=== PATIENT | female | born 1955 ===

== ENCOUNTER 2022-06-03 14:00 | Inpatient (IN) ==
[2022-06-03] MEDS ORDERED: Acetaminophen IV 1 GM/100ML 1,000 MG/100 ML BAG IV ONE (14:12)
[2022-06-03] MEDS ORDERED: Lactated Ringers 1000 ml BAG 1,000 ML IV ONE (14:12)
[2022-06-03 15:04] LABS: Venous Bicarbonate HCO3 24.4 mmol/L (24-28)
[2022-06-03 15:08] LABS: ABS Basophils 0.1 10^3/ul (0-0.2); ABS Lymphocytes 1.3 10^3/ul (1.0-4.8); ABS Monocytes 0.7 10^3/ul (0-0.8); ABS Neutrophils 10.5 10^3/ul (1.5-7.7); Eosinophil % 0.2 %; Hematocrit 47 % (35-47); Hemoglobin 15.7 g/dL (12.0-16.0); Lymphocyte % 10.2 %; Mean Corpuscular HGB Conc 34 g/dL (31-36); Mean Corpuscular Hemoglobin 31 pg (27-31); Mean Corpuscular Volume 93 fL (80-97); Mean Platelet Volume 7.7 fL (7.4-10.4); Platelet Count 307 10^3/uL (150-450); Red Blood Count 5.01 10^6 /uL (3.70-4.87); Red Cell Distribution Width 13 % (10-15); White Blood Count 12.6 10^3/uL (3.5-10.8)
[2022-06-03 15:47] LABS: Calcium 9.8 mg/dL (8.6-10.3); Potassium 3.9 mmol/L (3.5-5.0); eGFR CKD-EPI 95.7 (>60)
[2022-06-03] MEDS ORDERED: Dextrose 50% Syringe 50 ml 25 GM/50 ML SYRINGE IV PUSH PRN (16:23)
[2022-06-03 17:05] LABS: Magnesium 1.8 mg/dL (1.9-2.7)
[2022-06-03] MEDS ORDERED: Magnesium Sulfate IV 1GM/100ML 1 GM/100 ML BAG IV ONE (17:06)
[2022-06-03] MEDS ORDERED: Heparin 5000 UNITS/ML 1 mL VIAL SUBCUT ONE (17:30)
[2022-06-04] MEDS: Morphine 2 MG/ML SYRINGE IV PRN ×3 (05:34→12:19)
[2022-06-04 06:09] LABS: ABS Eosinophils 0.1 10^3/ul (0-0.6); ABS Lymphocytes 3.3 10^3/ul (1.0-4.8); ABS Neutrophils 5.8 10^3/ul (1.5-7.7); Eosinophil % 0.9 %; Hematocrit 39 % (35-47); Hemoglobin 13.5 g/dL (12.0-16.0); Mean Corpuscular HGB Conc 35 g/dL (31-36); Mean Corpuscular Hemoglobin 32 pg (27-31); Mean Corpuscular Volume 91 fL (80-97); Mean Platelet Volume 7.4 fL (7.4-10.4); Nucleated Red Blood Cells % 0.1; Platelet Count 279 10^3/uL (150-450); Red Blood Count 4.29 10^6 /uL (3.70-4.87); Red Cell Distribution Width 13 % (10-15); White Blood Count 10.2 10^3/uL (3.5-10.8)
[2022-06-04 06:23] LABS: Calcium 8.9 mg/dL (8.6-10.3); eGFR CKD-EPI 95.4 (>60)
[2022-06-04 08:44] LABS: Magnesium 1.9 mg/dL (1.9-2.7)
[2022-06-04] MEDS ORDERED: Influenza vaccine *QUAD* *2022-23* 0.5 ML SYRINGE IM ONE (09:00)
[2022-06-04] MEDS: Lactated Ringers 1000 ml BAG 1,000 ML IV SCH ×2 (13:21→23:02)
[2022-06-04] MEDS ORDERED: Magnesium Hydroxide LIQ 30 ML UDC PO PRN (15:42)
[2022-06-04] MEDS ORDERED: Polyethylene Glycol 3350 17 GM PACKET PO PRN (15:42)
[2022-06-04] MEDS ORDERED: Senna TAB 8.6 mg TAB PO PRN (15:42)
[2022-06-04] MEDS ORDERED: ceFAZolin 2 GM PREMIX 2 GM/50 ML BAG ONE (16:35)
[2022-06-04] MEDS ORDERED: Midazolam 2 mg/2 ml VIAL 1 mg/ml 2 ml VIAL (2 mg) ONE (16:56)
[2022-06-04] MEDS ORDERED: fentaNYL 250 mcg/5 ml 50 MCG/ML 5 ml VIAL (250 MCG) ONE (16:56)
[2022-06-04] MEDS ORDERED: Propofol 10 MG/ML 20 ML BTL ONE ×2 (16:56→18:56)
[2022-06-04] MEDS ORDERED: Lidocaine 2% PF 5 ML VIAL ONE (16:56)
[2022-06-04] MEDS ORDERED: Naloxone 0.4 mg VIAL 0.4 mg/ml 1 ml VIAL IV PRN (17:01)
[2022-06-04] MEDS ORDERED: Ondansetron 4 mg VIAL 2 MG/ML 2 ml VIAL IV PRN (17:01)
[2022-06-04] MEDS ORDERED: Acetaminophen IV 1 GM/100ML 1,000 MG/100 ML BAG IV PRN (17:01)
[2022-06-04] MEDS ORDERED: HYDROmorphone 1 MG/1 ML SYRINGE IV PRN (17:01)
[2022-06-04] MEDS ORDERED: Clindamycin 900 MG/D5W BAG 900 MG/50 ML BAG IVPB ONE (17:59)
[2022-06-04] MEDS ORDERED: Dexamethasone IV 4 MG/ML VIAL 1 ml VIAL ONE (18:29)
[2022-06-04] MEDS ORDERED: Ondansetron 4 mg VIAL 2 MG/ML 2 ml VIAL ONE (18:29)
[2022-06-04] MEDS ORDERED: fentaNYL 100 mcg/2 ml 50 MCG/ML VIAL ONE ×2 (19:35→20:51)
[2022-06-04] MEDS ORDERED: Acetaminophen IV 1 GM/100ML 1,000 MG/100 ML BAG IV ONE (20:18)
[2022-06-04] MEDS ORDERED: hydrALAZINE 20 mg/ml 1 ML Vial IV IV SLOW PU PRN (20:26)
[2022-06-04] MEDS ORDERED: hydrALAZINE 20 mg/ml 1 ML Vial IV ONE (20:36)
[2022-06-04] MEDS: fentaNYL 100 mcg/2 ml 50 MCG/ML VIAL IV PRN ×2 (20:53→21:55)
[2022-06-05] MEDS: Clindamycin 600 MG/D5W BAG IV SCH ×3 (03:03→18:26)
[2022-06-05 06:01] LABS: CO2 Carbon Dioxide 21 mmol/L (22-32); Calcium 8.7 mg/dL (8.6-10.3); Chloride 97 mmol/L (101-111); Sodium 130 mmol/L (135-145)
[2022-06-05 06:02] LABS: ABS Lymphocytes 1.3 10^3/ul (1.0-4.8); ABS Monocytes 1.3 10^3/ul (0-0.8); ABS Neutrophils 9.8 10^3/ul (1.5-7.7); Eosinophil % 0.1 %; Hematocrit 39 % (35-47); Hemoglobin 13.3 g/dL (12.0-16.0); Lymphocyte % 10.4 %; Mean Corpuscular HGB Conc 34 g/dL (31-36); Mean Corpuscular Hemoglobin 32 pg (27-31); Mean Corpuscular Volume 93 fL (80-97); Mean Platelet Volume 7.2 fL (7.4-10.4); Platelet Count 247 10^3/uL (150-450); Red Blood Count 4.21 10^6 /uL (3.70-4.87); Red Cell Distribution Width 13 % (10-15); White Blood Count 12.5 10^3/uL (3.5-10.8)
[2022-06-05 06:04] LABS: Anion Gap 12 mmol/L (2-11)
[2022-06-05 06:06] LABS: Blood Urea Nitrogen 15 mg/dL (6-24); Glucose 254 mg/dL (70-100); eGFR CKD-EPI 95.1 (>60)
[2022-06-05 07:49] LABS: Potassium, Whole Blood 4.4 mmol/L (3.4-4.5)
[2022-06-05] MEDS ORDERED: Influenza vaccine *QUAD* *2022-23* 0.5 ML SYRINGE IM ONE (09:00)
[2022-06-05] MEDS: Enoxaparin 40 MG/0.4 ML SYR SUBCUT SCH (09:46)
[2022-06-06 05:57] LABS: ABS Eosinophils 0.1 10^3/ul (0-0.6); ABS Lymphocytes 1.5 10^3/ul (1.0-4.8); ABS Monocytes 0.9 10^3/ul (0-0.8); ABS Neutrophils 6.3 10^3/ul (1.5-7.7); Eosinophil % 0.9 %; Hematocrit 32 % (35-47); Hemoglobin 11.3 g/dL (12.0-16.0); Mean Corpuscular HGB Conc 35 g/dL (31-36); Mean Corpuscular Hemoglobin 32 pg (27-31); Mean Corpuscular Volume 91 fL (80-97); Mean Platelet Volume 7.4 fL (7.4-10.4); Nucleated Red Blood Cells % 0.1; Platelet Count 241 10^3/uL (150-450); Red Blood Count 3.56 10^6 /uL (3.70-4.87); Red Cell Distribution Width 13 % (10-15); White Blood Count 8.8 10^3/uL (3.5-10.8)
[2022-06-06 06:40] LABS: Calcium 8.4 mg/dL (8.6-10.3); Magnesium 1.6 mg/dL (1.9-2.7)
[2022-06-06] MEDS ORDERED: Magnesium Sulfate 2 gm BAG 2 GM/50 ML BAG IVPB ONE (08:18)
[2022-06-06] MEDS: Enoxaparin 40 MG/0.4 ML SYR SUBCUT SCH (08:57)
[2022-06-06] MEDS ORDERED: Ondansetron 4 mg VIAL 2 MG/ML 2 ml VIAL IV PRN (10:03)
[2022-06-07 05:34] LABS: ABS Eosinophils 0.2 10^3/ul (0-0.6); ABS Lymphocytes 1.7 10^3/ul (1.0-4.8); ABS Monocytes 0.9 10^3/ul (0-0.8); ABS Neutrophils 4.4 10^3/ul (1.5-7.7); Eosinophil % 2.1 %; Hematocrit 32 % (35-47); Lymphocyte % 23.3 %; Mean Corpuscular HGB Conc 35 g/dL (31-36); Mean Corpuscular Hemoglobin 32 pg (27-31); Mean Corpuscular Volume 92 fL (80-97); Mean Platelet Volume 7.2 fL (7.4-10.4); Nucleated Red Blood Cells % 0.1; Platelet Count 251 10^3/uL (150-450); Red Blood Count 3.47 10^6 /uL (3.70-4.87); Red Cell Distribution Width 13 % (10-15); White Blood Count 7.3 10^3/uL (3.5-10.8)
[2022-06-07 06:31] LABS: Calcium 8.5 mg/dL (8.6-10.3); Magnesium 1.9 mg/dL (1.9-2.7); Potassium 4.1 mmol/L (3.5-5.0); eGFR CKD-EPI 100.8 (>60)
[2022-06-07] MEDS: Enoxaparin 40 MG/0.4 ML SYR SUBCUT SCH (10:31)
[2022-06-07] MEDS: Insulin GLARGINE 100 un/ml 10 ml VIAL SUBCUT SCH (10:31)
[2022-06-08 07:41] VITALS: BP 156/71
[2022-06-08] MEDS ORDERED: Nystatin TOP POWDER 15 GM BTL TOPICAL SCH (09:00)
[2022-06-08] MEDS: Insulin GLARGINE 100 un/ml 10 ml VIAL SUBCUT SCH (09:23)
[2022-06-08] MEDS: Enoxaparin 40 MG/0.4 ML SYR SUBCUT SCH (09:25)
== END 2022-06-08 11:00 | DRG 482 ==
LOC: ED 14:00 → SUATTDRO 15:48 → EDHOLD 15:48 → SSU 06-04 00:52
PROVIDERS: ADMIT Internal Medicine; ATTEND Internal Medicine

== ENCOUNTER 2023-09-26 09:00 | Inpatient (IN) ==
[2023-09-26 12:50] LABS: Rapid COVID-19 Molecular Undetected (Undetected)
[2023-09-26] MEDS ORDERED: Famotidine IV 10 MG/ML 2 ml VIAL (20 mg) ONE (13:12)
[2023-09-26] MEDS: Famotidine IV 10 MG/ML 2 ml VIAL (20 mg) IV ONE (13:47)
[2023-09-26] MEDS: Buffered Lidocaine 1% SYRIN 1 ml INTRADERM ONE (13:47)
[2023-09-26] MEDS: Lactated Ringers 1000 ml BAG 1,000 ML IV SCH ×2 (13:48→23:11)
[2023-09-26] MEDS ORDERED: Midazolam 2 mg/2 ml VIAL 1 mg/ml 2 ml VIAL (2 mg) ONE (14:13)
[2023-09-26] MEDS ORDERED: Rocuronium 50 mg VIAL 10 mg/ml 5 ml VIAL (50 mg) ONE (14:13)
[2023-09-26] MEDS ORDERED: Lidocaine 2% PF 5 ML VIAL ONE (14:13)
[2023-09-26] MEDS ORDERED: Propofol 10 MG/ML 20 ML BTL ONE (14:13)
[2023-09-26] MEDS ORDERED: fentaNYL 250 mcg/5 ml 50 MCG/ML 5 ml VIAL (250 MCG) ONE (14:13)
[2023-09-26] MEDS ORDERED: Naloxone 0.4 mg VIAL 0.4 mg/ml 1 ml VIAL IV PRN (15:11)
[2023-09-26] MEDS ORDERED: fentaNYL 100 mcg/2 ml 50 MCG/ML VIAL IV PRN (15:11)
[2023-09-26] MEDS ORDERED: HYDROmorphone 1 MG/1 ML SYRINGE IV PRN (15:11)
[2023-09-26] MEDS ORDERED: Dexamethasone IV 4 MG/ML VIAL 1 ml VIAL ONE (15:15)
[2023-09-26] MEDS ORDERED: Ondansetron 4 mg VIAL 2 MG/ML 2 ml VIAL ONE (15:15)
[2023-09-26] MEDS ORDERED: HYDROmorphone 0.5 MG/0.5 ML SYRINGE ONE ×2 (15:16→17:57)
[2023-09-26] MEDS ORDERED: ROPIVACAINE 5 MG/ML 30 ML BTL (0.5%) ONE (15:27)
[2023-09-26] MEDS ORDERED: Magnesium Hydroxide LIQ 30 ML UDC PO PRN (16:04)
[2023-09-26] MEDS ORDERED: Lactulose 30 ml UDC PO PRN (16:04)
[2023-09-26] MEDS ORDERED: Ondansetron 4 mg VIAL 2 MG/ML 2 ml VIAL IV PRN (16:04)
[2023-09-26] MEDS ORDERED: Ondansetron ODT 4 mg TAB 4 MG TAB PO PRN (16:04)
[2023-09-26] MEDS ORDERED: Morphine 2 MG/ML SYRINGE IV PRN (16:04)
[2023-09-26] MEDS ORDERED: Labetalol IV 5 MG/ML 20 ml VIAL ONE (19:46)
[2023-09-26] MEDS: Labetalol IV 5 MG/ML 20 ml VIAL IV PUSH ONE (19:48)
[2023-09-26] MEDS: Magnesium Hydroxide LIQ 30 ML UDC PO SCH (21:34)
[2023-09-26] MEDS: ceFAZolin 1 GM ADVAN 1 GM in NS 0.9% 50 ML 50 ML IVPB SCH (23:11)
[2023-09-27] MEDS: ceFAZolin 2 GM in NS 100 ml - ONCE (Pharmacy Admix) IVPB ONE
[2023-09-27] MEDS ORDERED: Dextrose 50% Syringe 50 ml 25 GM/50 ML SYRINGE IV PUSH PRN (02:57)
[2023-09-27] MEDS: Nystatin TOP POWDER 15 GM BTL TOPICAL SCH (06:30)
[2023-09-27 07:00] LABS: Hematocrit 28.5 % (35-45); Hemoglobin 9.9 g/dL (11.5-14.3); Platelet Count 300 10^3/uL (150-450)
[2023-09-27 07:32] LABS: Calcium 8.9 mg/dL (8.6-10.3); Creatinine, Serum 0.98 mg/dL (0.51-0.95); Potassium 5.2 mmol/L (3.5-5.0); eGFR CKD-EPI 62.9 (>60)
[2023-09-27] MEDS: Vitamin THERAPEUTIC TAB PO SCH (08:58)
[2023-09-27] MEDS ORDERED: Insulin GLARGINE 100 un/ml 10 ml VIAL SUBCUT SCH (21:00)
[2023-09-28 07:23] LABS: Hematocrit 27.5 % (35-45); Hemoglobin 9.7 g/dL (11.5-14.3); Platelet Count 287 10^3/uL (150-450)
[2023-09-29 06:25] LABS: Hematocrit 25.6 % (35-45); Mean Corpuscular Hemoglobin 32.5 pg (27-33); Mean Corpuscular Hgb Conc 35.2 g/dL (31-36); Mean Corpuscular Volume 92.1 fL (80-97); Mean Platelet Volume 6.9 fL (7.5-11.2); Platelet Count 307 10^3/uL (150-450); Red Blood Count 2.78 10^6/uL (3.63-4.92); Red Cell Distribution Width 12.8 % (12-17); White Blood Count 10.6 10^3/uL (3.8-11.8)
[2023-09-29 06:39] LABS: Calcium 8.8 mg/dL (8.6-10.3); Creatinine, Serum 0.83 mg/dL (0.51-0.95); Potassium 5.4 mmol/L (3.5-5.0); eGFR CKD-EPI 76.7 (>60)
[2023-09-29] MEDS: Insulin GLARGINE 100 un/ml 10 ml VIAL SUBCUT SCH (22:30)
[2023-09-30 06:06] LABS: Hematocrit 25.6 % (35-45); Mean Platelet Volume 6.8 fL (7.5-11.2); Platelet Count 344 10^3/uL (150-450)
[2023-09-30] MEDS: Insulin GLARGINE 100 un/ml 10 ml VIAL SUBCUT SCH (08:39)
[2023-10-01 06:20] LABS: ABS Eosinophils 0.2 10^3/uL (0.0-0.5); ABS Lymphocytes 2.7 10^3/uL (1.0-4.8); ABS Monocytes 0.9 10^3/uL (0.0-0.9); ABS Neutrophils 5.5 10^3/uL (1.5-7.6); ABS Nucleated RBC 0.01 10^3/ul; Eosinophil % 2.2 %; Hematocrit 25.3 % (35-45); Lymphocyte % 29.3 %; Mean Corpuscular Hgb Conc 35.7 g/dL (31-36); Mean Corpuscular Volume 92.4 fL (80-97); Mean Platelet Volume 6.6 fL (7.5-11.2); Nucleated Red Blood Cells % 0.1 %/100WBC (0.0-0.8); Platelet Count 405 10^3/uL (150-450); Red Blood Count 2.73 10^6/uL (3.63-4.92); Red Cell Distribution Width 12.5 % (12-17); White Blood Count 9.3 10^3/uL (3.8-11.8)
[2023-10-01 06:57] LABS: Anion Gap 6 mmol/L (2-16); Blood Urea Nitrogen 27 mg/dL (6-24); CO2 Carbon Dioxide 27 mmol/L (22-32); Calcium 9.1 mg/dL (8.6-10.3); Chloride 94 mmol/L (101-111); Creatinine, Serum 0.77 mg/dL (0.51-0.95); Glucose 183 mg/dL (70-100); Sodium 127 mmol/L (135-145)
[2023-10-02] MEDS: Insulin GLARGINE 100 un/ml 10 ml VIAL SUBCUT SCH (08:29)
[2023-10-02 09:41] VITALS: BP 120/72
== END 2023-10-02 10:35 | DRG 470 ==
LOC: INTOOBSV 11:51 → AA 11:51 → OBSVTOIN 11:51 → EDSTATUS 14:15 → SSU 19:54
PROVIDERS: ADMIT Orthopaedic Surgery Adult Reconstructive Orthopaedic Surgery; ATTEND Orthopaedic Surgery Adult Reconstructive Orthopaedic Surgery